=== PATIENT | male | born 1950 | race Caucasian/White ===

== ENCOUNTER → 2019-07-08 | Outpatient (CLI) | payer OTHER ==
[~2019-07-08] MED LIST: CATHETER FLUSH 10 ML SYR IV PRN; HOLD METFORMIN - RECEIVED CONTRAST 20 ML VIAL IV SCH; IOHEXOL 350 MG/ML 100 ML (OMNIPAQUE 350) VIAL IV ONE; NS 100 ML (IVPB) BAG IV ONE
[2019-07-08 13:21] LABS: BUN/CREATININE RATIO 10; CREATININE SERUM 1.07 MG/DL (0.60-1.30); GFR ESTIMATED > 60
--- NOTE | 2019-07-08 14:02 | Diagnostic Imaging Report ---
PROCEDURE: CT chest with contrast only. TECHNIQUE: Multiple contiguous axial images were obtained through the chest after administration of intravenous contrast. Auto Exposure Controls were utilized during the CT exam to meet ALARA standards for radiation dose reduction. INDICATION: COPD COMPARISON: None available. FINDINGS: No significant adenopathy within the chest. Postsurgical changes of a prior median sternotomy. No aneurysmal dilatation of the thoracic aorta. The heart is within normal limits in size. No pericardial effusion. No significant hiatal hernia. No pleural effusion. Severe background emphysematous changes, greatest within the periphery of the lungs. No pneumothorax. The lungs are clear of focal pulmonary opacity or suspicious pulmonary nodule. The airway is patent. No significant central filling defect within the pulmonary arteries. Pancreatic ductal dilatation is noted within the distal body and tail of the pancreas with associated calcification within the central aspect of the pancreas. Aneurysmal dilatation of the abdominal aorta is identified immediately inferior to the level of the renal vasculature measuring up to 4.0 cm. The visualized upper abdomen is otherwise unremarkable. IMPRESSION: Severe background emphysematous changes. Pancreatic ductal dilatation within the distal body and tail. This could relate to an underlying small obstructing mass lesion. Recommend a dedicated CT of the abdomen with and without contrast using pancreatic mass protocol for further evaluation. Abdominal aortic aneurysm measuring up to 4.0 cm. Dictated by: Dictated on workstation # [id number]
[2019-07-08 14:14] LABS: ABG BASE EXCESS -0.9 MMOL/L (-2.5-2.5); ABG OXYGEN SATURATION 97 % (94-100); ABG PCO2 37 MMHG (35-45); ABG PH 7.41 (7.37-7.43); ABG PO2 72 MMHG (79-93); ABG TCO2 24.7 MMOL/L (21.0-31.0)
[2019-07-08 14:17] LABS: ALLENS TEST POS; INSPIRED O2 ROOM AIR; PATIENT TEMP 35.5; VENTILATOR NO
== END ==
LOC: RAD 12:46
PROVIDERS: ATTEND Nurse Practitioner Family
DX: J43.9 Emphysema, unspecified (principal); K86.89 Other specified diseases of pancreas; I71.4 Abdominal aortic aneurysm, without rupture; J98.4 Other disorders of lung; Z72.0 Tobacco use
CPT/HCPCS: 36415; 36600; 71260; 82565; 82805; 84520

== ENCOUNTER → 2019-07-22 | Outpatient (CLI) | payer MEDICARE, OTHER ==
[~2019-07-22] MED LIST changes: -CATHETER FLUSH 10 ML SYR IV PRN; -HOLD METFORMIN - RECEIVED CONTRAST 20 ML VIAL IV SCH; -IOHEXOL 350 MG/ML 100 ML (OMNIPAQUE 350) VIAL IV ONE; -NS 100 ML (IVPB) BAG IV ONE; +RT-ALBUTEROL SULF 2.5 MG/3 ML PRE-MIX VIAL INH ONE
== END ==
LOC: RT 13:10 → EDUNIT# 14:50
PROVIDERS: ATTEND Nurse Practitioner Family
DX: J44.9 Chronic obstructive pulmonary disease, unspecified (principal); J98.4 Other disorders of lung; Z72.0 Tobacco use
CPT/HCPCS: 94060; 94640; 94726; 94729

== ENCOUNTER → 2019-09-02 | Outpatient (CLI) | payer OTHER ==
[~2019-09-02] MED LIST changes: +BARIUM SUSPENSION 2.1% (VANILLA SILQ) 450 ML PO ONE; +HOLD METFORMIN - RECEIVED CONTRAST 20 ML VIAL IV SCH; +IOHEXOL 350 MG/ML 100 ML (OMNIPAQUE 350) VIAL IV ONE; +NS 100 ML (IVPB) BAG IV ONE; -RT-ALBUTEROL SULF 2.5 MG/3 ML PRE-MIX VIAL INH ONE
[2019-09-02 08:43] LABS: BUN/CREATININE RATIO 9; CREATININE SERUM 1.06 MG/DL (0.60-1.30); GFR ESTIMATED > 60
--- NOTE | 2019-09-02 09:40 | Diagnostic Imaging Report ---
PROCEDURE: CT abdomen and pelvis with and without contrast. TECHNIQUE: Precontrast acquisitions were acquired through the abdomen and pelvis. Multiple contiguous axial images were obtained through the abdomen and pelvis after the administration of intravenous contrast. Auto Exposure Controls were utilized during the CT exam to meet ALARA standards for radiation dose reduction. INDICATION: Abnormal recent CT chest demonstrating pancreatic ductal dilatation. This study is performed to evaluate the pancreas. COMPARISON: Correlation is made with CT chest study from 07/08/2019. FINDINGS: Lung bases demonstrate emphysematous changes. The liver and gallbladder are unremarkable. No biliary ductal dilatation is seen. Pancreas contains a calcification in the pancreatic body. There is pancreatic ductal dilatation in the distal body and tail, similar to prior exam. No discrete mass is identified. The pancreas is unremarkable. No adrenal mass is detected. Kidneys are unremarkable. The infrarenal abdominal aorta is aneurysmal measuring 3.6 cm AP x 3.8 cm transverse. There is some moderate amount of mural thrombus present. Aneurysm terminates above the bifurcation. No perianeurysmal fluid collection to suggest leakage or rupture is detected. The small and large bowel loops are normal caliber. No free fluid or fluid collection is seen. No definite abdominal or pelvic lymphadenopathy is detected. Bony structures are nonacute. IMPRESSION: 1. Mild distal pancreatic ductal dilatation. There is calcification in the pancreatic body. No noncalcified masses are seen. 2. Infrarenal abdominal aortic aneurysm. 3. No other significant abnormality is detected. Dictated by: Dictated on workstation # [id number]
--- NOTE | 2019-09-02 10:28 | Pulmonary Procedures ---
Pulmonary Procedures Date of Procedure Date of Service: Sep 02, 2019 Procedure: US guided complex thoracentesis Preop DX: pleural effusion post op DX: 2000cc of yellow fluid obtained) Complications: None After informed consent obtained US was used to localize pleural fluid. Pt has right pleural effusions. Skin was anesthetized at approximately the 10th ICS posterior axillary line. Thoracentesis needle was advanced through the 10th ICS posterior axillary line. Needle was removed and catheter left in place.2000cc of yellow fluid obtained using vacuum bottles. Catheter was then removed. Pt tolerated procedure well. No complications noted. GISELLE GALVEZ DO Sep 02, 2019 10:28
== END ==
LOC: RAD 08:13
PROVIDERS: ATTEND Internal Medicine Critical Care Medicine
DX: J44.9 Chronic obstructive pulmonary disease, unspecified (principal); J98.4 Other disorders of lung; I71.4 Abdominal aortic aneurysm, without rupture; K86.89 Other specified diseases of pancreas; Z72.0 Tobacco use
CPT/HCPCS: 36415; 74178; 82565; 84520